=== PATIENT | male | born 1980 | race Caucasian/White ===

== ENCOUNTER 2019-08-30 07:57 | Inpatient (IN) ==
--- NOTE | 2019-08-30 08:35 | PROVIDER DOCUMENTATION ---
HPI-General Adult - General Chief Complaint: Cough Stated Complaint: SOB Time Seen by Provider: 08/30/19 08:20 Source: patient, family Allergies/Adverse Reactions: Patient Allergies Allergy/AdvReac Type Severity Reaction Status Date / Time amoxicillin Allergy RASH Verified 08/30/19 08:42 Sulfa (Sulfonamide Allergy RASH Verified 08/30/19 08:42 Antibiotics) Home Medications: Home Medication List Medication Instructions Recorded Confirmed Last Taken Type Alprazolam [Xanax] 0.5 mg PO PRN PRN 08/30/19 08/30/19 Unknown History Docusate Sodium 100 mg PO BID 08/30/19 08/30/19 Unknown History Hydrocodone/APAP 10 mg/325 mg 1 ea PO Q4H PRN PRN 08/30/19 08/30/19 Unknown History [[place]-10] Midodrine [Proamatine] 10 mg PO TID 08/30/19 08/30/19 Unknown History Sorbitol 1 gm MC DIRECTED 08/30/19 08/30/19 Unknown History - History of Present Illness -Gen Adult Nature of Presenting Problems: 20 year duration C-5 paraplegic with 12 hr hx of increased cough, white sputum now yellow, night sweats, ?fever. chronic suprapubic catheter and frequent UTIs, Alleric Sulfa and Amoxil. just moved from [facility] and no local PCP as of yet. Review of Systems - Adult - REVIEW OF SYSTEMS - ADULT Constitutional: reports: chills, fever, night sweats Eyes: reports: no symptoms reported Ears, Nose, Mouth & Throat: reports: no symptoms reported Cardiovascular: reports: no symptoms reported Respiratory: reports: see HPI Gastrointestinal: reports: no symptoms reported Genitourinary: reports: no symptoms reported Musculoskeletal: reports: no symptoms reported Integumentary: reports: no symptoms reported Neurological: reports: see HPI Psychiatric: reports: no symptoms reported Endocrine: reports: no symptoms reported Hematologic/Lymphatic: reports: no symptoms reported Allergic/Immunologic: reports: no symptoms reported All Other Systems: Reviewed and Negative Past History - Adult - PAST MEDICAL HISTORY-ADULT Review of Records: reports: Nursing Assessment Review, Medications Reviewed, Social history reviewed & non-contributory. Major Childhood Illnesses: reports: denies history Cardiovascular: reports: denies history Respiratory: reports: denies history Gastrointestinal: reports: denies history Obstetrical/Gynecological: reports: denies history Genitourinary: reports: denies history Musculoskeletal: reports: denies history Neurological: reports: denies history Endocrine/Immune: reports: denies history Other Conditions: reports: denies history Physical Exam-General - PHYSICAL EXAM-ADULT Initial Vital Signs Reviewed: Yes - CONSTITUTIONAL General Appearance: alert, cachetic, thin - EYES Eyes: PERRL/EOMI, pink conjunctivae. negative: meningismus - HEAD, EARS, NOSE, MOUTH & THROAT HENMT: normocephalic/atraumatic, moist mucous membranes - NECK Neck: full range of motion, other (trach in place ant neck) - RESPIRATORY Respiratory: chest non-tender, lungs clear, normal breath sounds, no respiratory distress, no accessory muscle use. negative: respiratory distress - CARDIOVASCULAR Cardiovascular: normal peripheral pulses, regular rate, rhythm, no edema, no murmur - GASTROINTESTINAL (ABDOMEN) Abdominal Exam: normal bowel sounds, soft, other (suprapubic catheter). 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 no motor below chest.) - PSYCHIATRIC Psych/Mental Status: normal mood/affect, normal thought content, normal thought process, oriented x 3. negative: anxious, paranoid, tearful Progress - PLAN OF CARE/RESULTS Progress/Plan/Lab Results: Vital Signs - 8 hr 08/30/19 08:06 Pulse Rate 90 Respiratory Rate 19 Blood Pressure 97/68 O2 Sat by Pulse Oximetry 97 Orders Category Date Time Status Cardiac Monitoring DIRECTED Care 08/30/19 08:28 Ordered Saline Loc NOW Care 08/30/19 08:28 Ordered CHEST-PORTABLE [RAD] Stat Exams 08/30/19 08:29 Ordered BLOOD CULTURE [BLDCUL] Stat Lab 08/30/19 08:28 Ordered CBC WITH ELECTRONIC DIFF [HEME] Stat Lab 08/30/19 08:28 Uncollected COMPREHENSIVE METABOLIC PANEL [CHEM] Stat Lab 08/30/19 08:[address] Stat Lab 08/30/19 08:28 Uncollected LACTATE, PLASMA [CHEM] Stat Lab 08/30/19 08:28 Uncollected SPUTUM CULTURE WITH GRAM STAIN [RM] Stat Lab 08/30/19 08:29 Uncollected URINALYSIS W/POSS RFLX CULT [URINALYSIS] Stat Lab 08/30/19 08:29 Uncollected URINE CULTURE [RM] Stat Lab 08/30/19 08:29 Uncollected Result Diagrams: 08/30/19 09:14 08/30/19 08:28 - XRAY 1 XRAY Study: Chest Impression: See EMR Report - CONSULTS/PCP/HOSPITALIST Notification #1 *Consult/PCP/Hospitalist*: DR CABALLERO Time Discussed: 10:33 Consult Disposition: Admit Departure - Departure Date of Disposition Decision: 08/30/19 Time of Disposition Decision: 10:44 DIAGNOSIS: Pneumonia, UTI (urinary tract infection), Quadriplegia, C5-C7 incomplete Disposition: ADMITTED INPATIENT 09 Certified Medical Emergency: Emergent Condition: Stable Referrals and Follow-Ups: None,PCP [Primary Care Provider] - - Critical Care Note This patient required my direct & personal management of CC.: No Attestation - Physician/ HAMIDA Attestation The physician spent face to face time with patient:: Yes Advanced Practice Provider documentation review:: Supervising physician onsite and consulted in the evaluation and care of this patient. The physician did have a face to face encounter with the patient.
[2019-08-30 09:06] LABS: URINE SOURCE CATH
[2019-08-30 09:17] LABS: BILIRUBIN URINE NEGATIVE (NEGATIVE); BLOOD URINE NEGATIVE (NEGATIVE); COLOR YELLOW; GLUCOSE URINE NEGATIVE (NEGATIVE); KETONE URINE NEGATIVE (NEGATIVE); LEUKOCYTES URINE LARGE (NEGATIVE); NITRITE URINE POSITIVE (NEGATIVE); PROTEIN URINE TRACE mg/dL (NEGATIVE); SP GRAVITY URINE 1.014; TURBIDITY URINE TURBID (CLEAR); UROBILINOGEN URINE NORMAL (NORMAL)
--- NOTE | 2019-08-30 09:21 | Diag Imaging Result Doc PS360 ---
EXAM: CHEST-PORTABLE HISTORY: cough TECHNIQUE: Single view of the chest was performed portably. COMPARISON: None. FINDINGS: There is a tracheostomy tube and surgical clips left apex. The heart size is within normal limits. There is increased opacity right apex associated with increased interstitial markings right upper lobe and superior hilar retraction. Correlate clinically and with prior studies. The pulmonary vasculature is not congested. No effusion, or pneumothorax is appreciated. Probable pulmonary emphysema. There is fusion of lower thoracic vertebral bodies. There are surgical clips left lateral chest wall. IMPRESSION: Increased interstitial markings right upper lobe and increased opacity right apex which may be chronic. Correlate clinically and with prior studies. Pulmonary emphysema. Electronically signed by Betty De Souza 08/30/2019 9:18 AM
[2019-08-30 09:36] LABS: BASO% 1.5 % (0.0-0.8); EOS# 0.27 X1000 (0.0-0.7); EOS% 3.9 % (0.0-10.0); HEMATOCRIT 34.8 % (42.0-52.0); HEMOGLOBIN 10.1 g/dL (14.0-18.0); LYMPH# 1.07 X1000 (1.2-3.4); LYMPH% 15.6 % (20.5-51.1); MCH 24.2 PG (27-31); MCV 83.3 FL (81-99); MONO# 0.56 X1000 (0.11-0.59); MONO% 8.2 % (1.7-9.3); MPV 10.5 FL (7.4-10.4); NEUT# 4.85 X1000 (1.4-6.5); NEUT% 70.8 % (42.2-75.2); PLT 350 X1000 (130-400); RBC 4.18 XMIL (4.7-6.1); RDW 19.1 % (11.5-14.5); WBC 6.85 X1000 (4.8-10.8)
[2019-08-30] MEDS ORDERED: LEVAQUIN 500 MG/D5W 500 MG/100 ML IVPB IV ONE (09:48)
[2019-08-30 09:49] LABS: UR EPITHELIAL CELLS <10 /HPF (<10); URINE BACTERIA 2+ /HPF; URINE RBC <10 /HPF (<10)
[2019-08-30 09:50] LABS: URINE CASTS NONE SEEN; URINE CRYSTALS NONE SEEN; URINE SMALL ROUND CELLS NONE SEEN; URINE YEAST PRESENT
[2019-08-30 09:58] LABS: INFLUENZA A NEGATIVE (NEGATIVE); INFLUENZA B NEGATIVE (NEGATIVE)
[2019-08-30 10:11] LABS: AGAP 11; ALBUMIN 3.7 g/dL (3.5-5.0); ALKALINE PHOSPHATASE 116 U/L (32-122); BUN 13 mg/dL (8-22); CALCIUM 8.7 mg/dL (8.8-10.2); CHLORIDE 98 mmol/L (98-107); COSMO 279; CREATININE < 0.2 mg/dL (0.7-1.2); GLUCOSE 151 mg/dL (70-104); GOT 27 U/L (10-34); GPT 18 U/L (10-44); POTASSIUM 4.2 mmol/L (3.5-5.1); SODIUM 138 mmol/L (136-145); TCO2 29 mmol/L (25-35); TOTAL PROTEIN 7.2 g/dL (6.3-8.3)
[2019-08-30] MEDS ORDERED: NORCO-10 PO ONE (11:12)
--- NOTE | 2019-08-30 14:14 | HISTORY AND PHYSICAL ---
PRIMARY CARE PHYSICIAN: None. CHIEF COMPLAINT: Cough of yellow sputum, night sweats, subjective fever over the past day that has progressively worsened. HISTORY OF PRESENTING ILLNESS: This is a 38-year-old, male with a history of quadriplegia, chronic suprapubic catheter with frequent UTIs, and feeding tube, who presents to [facility] ER with complaints of a productive cough of yellow sputum, night sweats, subjective fever over the past day that progressively worsened. States he gets frequent UTIs and pneumonia. He has recently moved from [place] to here in [place], so he does not have a primary care physician at this time. Workup showed white blood cell count to be within normal limits. Urinalysis with positive nitrites, large leukocytes, 2+ white blood cells. Influenza A and B were both negative. His chest x-ray showed increased interstitial marking in the right upper lobe, and increased opacity in the right apex, which may be chronic, but correlate clinically and with prior studies, which we do not have, and also has pulmonary emphysema, so he will be admitted for further evaluation and treatment. PAST MEDICAL HISTORY: Quadriplegia and hypotension. PAST SURGICAL HISTORY: Left BKA, an appendectomy, suprapubic catheter placement, tracheostomy, and a feeding tube. FAMILY HISTORY: Reviewed and noncontributory. SOCIAL HISTORY: Currently lives with family. Denies any tobacco, alcohol, or illicit drug use. ALLERGIES: Amoxicillin and sulfa. HOME MEDICATIONS: He takes Xanax 0.5 mg p.o. p.r.n., Colace 100 mg p.o. b.i.d., [place] 10 one p.o. every 4 hours p.r.n., midodrine 10 mg p.o. t.i.d., and sorbitol 1 gram as directed on Fridays for bowel training. IMAGING AND LABORATORY DATA: Laboratory data showed a white blood cell count of 6.85, hemoglobin 10.1, hematocrit 34.8, platelets 350,000. Sodium 138, potassium 4.2, chloride 98, CO2 of 29, BUN of 13, creatinine less than 0.2, glucose 151. Plasma lactate of 1.4. Urinalysis with positive nitrites, large leukocytes, 2+ bacteria. Influenza A and B were both negative. Chest x-ray showed increased interstitial markings in the right upper lobe, and increased opacity to the right apex, which may be chronic. Correlate clinically and with prior studies. Pulmonary emphysema. REVIEW OF SYSTEMS: He had a subjective fever, night sweats, a productive yellow sputum, cough. Denied any shortness of breath, chest pain, abdominal pain, constipation, diarrhea, burning or hurting with urination. PHYSICAL EXAMINATION: VITAL SIGNS: On arrival, he had a pulse of 90, respirations 19, blood pressure 97/68, saturating 97% on room air. GENERAL: This is a 38-year-old, male, lying in the bed, answers questions appropriately. HEENT: Normocephalic, atraumatic. Normal ENT inspection. Oropharynx and nares are clear. Eyes: Pupils are equal, round, reactive to light and accommodation. Extraocular movements are intact. NECK: He has a trach in place to his anterior neck. LUNGS: Clear to auscultation bilaterally with equal lung expansion and chest wall movement. HEART: Regular rate and rhythm. No murmurs, rubs, or gallops. ABDOMEN: Soft, nontender, nondistended. He is noted to have a feeding tube in place and a suprapubic catheter. Bowel sounds are present x4 quadrants. MUSCULOSKELETAL: He has a left AKA. He is quadriplegic. NEUROLOGICAL: He does note contractures to his hands bilaterally. He does have some shoulder biceps movement, but no motor below the chest. He is alert and oriented x3, and answers questions appropriately. ASSESSMENT: 1. Right lung pneumonia. 2. Urinary tract infection. 3. Quadriplegia. PLAN: He will be admitted to the medical unit, placed on telemetry, O2 per protocol via his trach, n.p.o. He receives Isosource 4 cans per his feeding tube daily mixed with 150 mL of water with each feeding, and then flushed with 150 mL of water after each feeding. Incentive spirometry. Will place him on an air mattress, SCD to his right lower extremity for DVT prophylaxis. Will place on Levaquin 500 mg IV every 24 hours, DuoNeb every 4 hours per his trach. Continue home medications as previously identified. Recheck a CBC and BMP in the a.m. Urine culture, sputum culture, and blood cultures x2 are pending. Further orders after seen by attending. Dictated by SHAYAN Quan for Kenji Daniel MD cc: SHAYAN Quan MD
[2019-08-30] MEDS: NORCO-10 PO PRN ×2 (15:02→20:22)
[2019-08-30] MEDS ORDERED: DUONEB (A & A) INH SCH (15:30)
[2019-08-30] MEDS ORDERED: XOPENEX NEB ONE (16:20)
[2019-08-30] MEDS: XOPENEX NEB INH SCH ×2 (16:23→21:49)
[2019-08-30] MEDS: PROAMATINE PO SCH ×2 (16:35→16:45)
[2019-08-30] MEDS: XANAX PO PRN (16:35)
[2019-08-30] MEDS ORDERED: ATROVENT NEB INH SCH (19:30)
[2019-08-30] MEDS: COLACE PO SCH (20:22)
[2019-08-31] MEDS: NORCO-10 PO PRN ×3 (01:06→09:51)
[2019-08-31] MEDS: XANAX PO PRN ×2 (04:04→12:21)
[2019-08-31] MEDS: ATROVENT NEB INH SCH ×4 (04:05→21:30)
[2019-08-31 06:45] LABS: BASO# 0.07 X1000 (0.0-0.2); BASO% 1.7 % (0.0-0.8); EOS# 0.29 X1000 (0.0-0.7); HEMATOCRIT 29.9 % (42.0-52.0); HEMOGLOBIN 8.7 g/dL (14.0-18.0); LYMPH# 1.62 X1000 (1.2-3.4); LYMPH% 39.2 % (20.5-51.1); MCHC 29.1 g/dL (33-37); MCV 82.6 FL (81-99); MONO# 0.33 X1000 (0.11-0.59); MPV 10.7 FL (7.4-10.4); NEUT# 1.82 X1000 (1.4-6.5); NEUT% 44.1 % (42.2-75.2); PLT 278 X1000 (130-400); RBC 3.62 XMIL (4.7-6.1); RDW 19.1 % (11.5-14.5); WBC 4.13 X1000 (4.8-10.8)
[2019-08-31 07:05] LABS: AGAP 10; BUN 10 mg/dL (8-22); CALCIUM 8.7 mg/dL (8.8-10.2); CHLORIDE 98 mmol/L (98-107); COSMO 272; CREATININE < 0.2 mg/dL (0.7-1.2); GLUCOSE 77 mg/dL (70-104); POTASSIUM 4.2 mmol/L (3.5-5.1); SODIUM 137 mmol/L (136-145); TCO2 29 mmol/L (25-35)
--- NOTE | 2019-08-31 07:14 | HISTORY AND PHYSICAL ---
ADDENDUM: Patient seen and examined by myself. Full note dictated and discussed with nurse practitioner. The patient is a 18-year-old C5 paraplegic with increased cough, congestion, increased sputum. We are going to admit him to the hospital, place him on antibiotics for pneumonia, and will follow. cc: Kenji Daniel MD
[2019-08-31] MEDS: XOPENEX NEB INH SCH ×3 (09:08→21:30)
[2019-08-31] MEDS: COLACE PO SCH ×2 (09:50→21:21)
[2019-08-31] MEDS: PROAMATINE PO SCH ×3 (09:50→17:01)
[2019-08-31] MEDS: LEVAQUIN 500 MG/D5W 500 MG/100 ML IVPB IV SCH (09:57)
[2019-08-31] MEDS: MORPHINE IV PRN ×3 (10:53→18:52)
[2019-08-31] MEDS ORDERED: XANAX PO SCH ×2 (21:00)
[2019-08-31] MEDS: XANAX PO SCH (21:21)
[2019-09-01] MEDS: MORPHINE IV PRN ×4 (00:35→14:16)
[2019-09-01] MEDS: ATROVENT NEB INH SCH ×4 (03:21→22:06)
[2019-09-01] MEDS: XOPENEX NEB INH SCH ×3 (09:00→22:05)
[2019-09-01] MEDS: COLACE PO SCH ×2 (09:06→20:38)
[2019-09-01] MEDS: PROAMATINE PO SCH ×3 (09:06→17:15)
[2019-09-01] MEDS: LEVAQUIN 500 MG/D5W 500 MG/100 ML IVPB IV SCH (09:06)
[2019-09-01] MEDS: LOVENOX SUBQ SCH (09:06)
[2019-09-01] MEDS ORDERED: NS 500 ML ONE (16:16)
[2019-09-01] MEDS: XANAX PO SCH (20:38)
[2019-09-01] MEDS: PERCOCET-5 PO PRN (20:39)
--- NOTE | 2019-09-01 22:21 | PROGRESS NOTE ---
DATE: 08/31/2019 SUBJECTIVE: Patient has no major complaints, except pain is persistent. OBJECTIVE: Vital signs: Blood pressure was 115/81, heart rate 101, respiratory rate 16, temperature 98.3 degrees, he was afebrile. Cardiovascular: Regular rate and rhythm. Pulmonary: Bilateral breath sounds diminished at the bases. Gastrointestinal: Soft, nontender, nondistended. Bowel sounds were positive. LABORATORY DATA: White count was 4, hemoglobin and hematocrit 8 and 29, platelets 278,000. PROBLEM LIST: 1. Complicated urinary tract infection with a suprapubic catheter. We will continue empiric antibiotics and follow. Currently on Levaquin. 2. Right upper lobe pneumonia. We will continue to monitor closely and follow. 3. Quadriplegia. We will continue his regular medications and follow. DISPOSITION: Pending clinical status, discharge when more stable. cc: Yong Ascencio MD
--- NOTE | 2019-09-01 22:33 | PROGRESS NOTE ---
DATE: 09/01/2019 SUBJECTIVE: He has no major complaints. OBJECTIVE: Blood pressure is 86/56, heart rate of 100, respiratory rate 18, temperature 98.4 degrees.Cardiovascular: Regular rate and rhythm. Pulmonary: Bilateral breath sounds. Clear to auscultation. GI: Soft, nontender, nondistended. Bowel sounds are positive. LABORATORY DATA: White count is 4, hemoglobin and hematocrit 8 and 29, platelets 278,000. Basic was normal. PROBLEM LIST: 1. Right upper lobe pneumonia. We will continue empiric antibiotics and follow. 2. Urinary tract infection. Gram-negative fabien. He is currently on Levaquin. This will be day 2. We are waiting on final measures for resistance patterns. 3. Chronic obstructive pulmonary disease. Seems to be doing okay. Stable currently. 4. Quadriplegia. Also stable. We will continue to monitor. Anticipate discharge in the next couple days pending his consult. 5. Disposition. 6. Hypotension. We will continue to treat, follow his blood pressure closely. I do think he has some autonomic dysfunction related to his quadriplegia and we may need to worry about possible complications there. He is on midodrine. We will treat his blood pressure intermittently as needed. cc: Yong Ascencio MD
[2019-09-02] MEDS: PERCOCET-5 PO PRN ×4 (00:31→18:35)
[2019-09-02] MEDS: ATROVENT NEB INH SCH ×5 (04:47→21:11)
[2019-09-02] MEDS: LOVENOX SUBQ SCH (06:24)
[2019-09-02 07:03] LABS: BASO# 0.07 X1000 (0.0-0.2); BASO% 1.8 % (0.0-0.8); EOS# 0.26 X1000 (0.0-0.7); EOS% 6.8 % (0.0-10.0); HEMATOCRIT 32.5 % (42.0-52.0); HEMOGLOBIN 9.5 g/dL (14.0-18.0); LYMPH# 1.35 X1000 (1.2-3.4); LYMPH% 35.2 % (20.5-51.1); MCH 24.1 PG (27-31); MCHC 29.2 g/dL (33-37); MCV 82.5 FL (81-99); MONO# 0.49 X1000 (0.11-0.59); MONO% 12.8 % (1.7-9.3); MPV 11.1 FL (7.4-10.4); NEUT# 1.66 X1000 (1.4-6.5); NEUT% 43.4 % (42.2-75.2); PLT 285 X1000 (130-400); RBC 3.94 XMIL (4.7-6.1); RDW 18.8 % (11.5-14.5); WBC 3.83 X1000 (4.8-10.8)
[2019-09-02 07:09] LABS: SODIUM 139 mmol/L (136-145)
[2019-09-02 07:10] LABS: AGAP 12; BUN 12 mg/dL (8-22); CALCIUM 9.1 mg/dL (8.8-10.2); CHLORIDE 100 mmol/L (98-107); COSMO 276; CREATININE 0.2 mg/dL (0.7-1.2); ESTIMATED GFR > 60; GLUCOSE 74 mg/dL (70-104); TCO2 28 mmol/L (25-35)
--- NOTE | 2019-09-02 07:48 | Diag Imaging Result Doc PS360 ---
EXAM: CHEST-PORTABLE - 09/02/2019 HISTORY: dyspnea TECHNIQUE: Portable chest COMPARISON: 08/30/2019 FINDINGS: Heart size is normal. There are COPD/emphysematous changes. There is scarring at the right apex. There is been apparent development of minimal ill-defined perihilar infiltrate on the right. There is no other consolidation, vascular congestion, pleural effusion, or pneumothorax identified. Tracheostomy tube remains in place. There are some degenerative changes noted at the bilateral shoulders. IMPRESSION: COPD/emphysematous changes. Minimal perihilar infiltrate on the right. Electronically signed by Elliot Henderson 09/02/2019 7:46 AM
[2019-09-02] MEDS: XOPENEX NEB INH SCH ×3 (08:27→21:11)
[2019-09-02] MEDS: LEVAQUIN 500 MG/D5W 500 MG/100 ML IVPB IV SCH (10:19)
[2019-09-02] MEDS: COLACE PO SCH ×2 (10:20→21:28)
[2019-09-02] MEDS: PROAMATINE PO SCH ×3 (10:20→17:52)
[2019-09-02] MEDS: XANAX PO SCH (21:28)
[2019-09-03] MEDS: PERCOCET-5 PO PRN ×4 (00:36→21:03)
--- NOTE | 2019-09-03 05:49 | PROGRESS NOTE ---
DATE: 09/02/2019 SUBJECTIVE: Patient has no new complaints. States he is still hurting all over. Denies any fevers or chills. PHYSICAL EXAMINATION: Vital Signs: Temperature 97.9 degrees, pulse 69, respiratory rate 18, BP 143/69. General: Patient is awake, alert. He is sitting in his wheelchair. He is in no distress. HEENT: Normocephalic. Neck: Supple. Cardiovascular: Regular rate. Chest: Clear, nonlabored. Neurologic: No focal changes. He has decreased movement of all 4 extremities due to chronic quadriplegia. ASSESSMENT: 1. Right upper lobe pneumonia. 2. Urinary tract infection, currently growing gram-negative rods. 3. Chronic obstructive pulmonary disease. 4. Quadriplegia. 5. Chronic pain. 6. Hypotension, resolved. PLAN: We are going to continue patient in the hospital. Continue antibiotics. Follow his culture. Patient is incapable of caring for himself at home. We expect that he will need further inpatient treatment with rehab. cc: Kenji Daniel MD
[2019-09-03] MEDS: LOVENOX SUBQ SCH (06:32)
[2019-09-03] MEDS ORDERED: SORBITOL PO SCH (08:00)
[2019-09-03] MEDS: MAXIPIME 1 GM in NS 50 ML IV SCH ×2 (09:30→21:06)
[2019-09-03] MEDS: PROAMATINE PO SCH ×3 (09:30→17:02)
[2019-09-03] MEDS: ATROVENT NEB INH SCH ×3 (10:44→22:25)
[2019-09-03] MEDS: XOPENEX NEB INH SCH ×3 (10:45→22:25)
[2019-09-03] MEDS ORDERED: BENADRYL IV PRN (10:50)
[2019-09-03] MEDS: COLACE PO SCH ×2 (10:56→21:03)
[2019-09-03] MEDS: BENADRYL IV PRN ×3 (10:57→21:05)
[2019-09-03] MEDS: XANAX PO SCH (21:04)
--- NOTE | 2019-09-03 23:20 | PROGRESS NOTE ---
DATE: 09/03/2019 SUBJECTIVE: The patient has no new complaints. PHYSICAL EXAMINATION: Vital Signs: Reviewed. Temperature 97.7 degrees, pulse is 101, respiratory rate 18, BP 95/69. General: The patient is in no current distress. He is sitting in his wheelchair, watching his iPad. HEENT: Normocephalic. Neck: Supple. Cardiovascular: Regular rate. Chest: Clear with occasional rhonchi. No wheezing, no crackles. Extremities: He has no edema. Neurologic: He has no focal changes. ASSESSMENT: 1. Right upper lobe pneumonia, improved. 2. Urinary tract infection, stable. 3. Quadriplegia. 4. Chronic obstructive pulmonary disease. 5. Hypotension, stable. PLAN: The patient currently is improving medically. Discharge is still problematic due to social situation. We are going to continue him in the hospital until we can find a safe discharge plan. cc: Kenji Daniel MD
[2019-09-04] MEDS: BENADRYL IV PRN ×5 (02:08→22:49)
[2019-09-04] MEDS: COLACE PO SCH ×2 (09:41→22:49)
[2019-09-04] MEDS: PERCOCET-5 PO PRN ×2 (09:41→15:52)
[2019-09-04] MEDS: MAXIPIME 1 GM in NS 50 ML IV SCH ×2 (09:42→22:50)
[2019-09-04] MEDS: LOVENOX SUBQ SCH (09:42)
[2019-09-04] MEDS: PROAMATINE PO SCH ×3 (09:49→17:56)
[2019-09-04] MEDS: XOPENEX NEB INH SCH ×3 (11:12→18:13)
[2019-09-04] MEDS: ATROVENT NEB INH SCH ×2 (11:12→16:05)
[2019-09-04] MEDS: XANAX PO SCH (22:49)
--- NOTE | 2019-09-05 03:49 | PROGRESS NOTE ---
DATE: 09/04/2019 SUBJECTIVE: Patient has no major complaints. OBJECTIVE: Vital signs: Blood pressure is 109/66, heart rate 87, respiratory 18, temperature 97.9 degrees. Cardiovascular: Regular rate and rhythm. Pulmonary: Bilateral breath sounds, clear to auscultation. Gastrointestinal: Soft, nontender, nondistended. Bowel sounds are positive. LABORATORY DATA: White count is 3.8, hemoglobin and hematocrit 9 and 32, platelets 285,000. PROBLEM LIST: Right upper lobe pneumonia. He is still on antibiotics. He is on cefepime, he has been on that since 09/03, which is just yesterday, and then he had Pseudomonas in his urine which was sensitive to cefepime, but that was on 08/30, so he will at least need 2 more days for that. I am going to say this is day 5 of antibiotics. We will continue to monitor. cc: Yong Ascencio MD
[2019-09-05] MEDS: PERCOCET-5 PO PRN ×2 (05:46→12:20)
[2019-09-05] MEDS: LOVENOX SUBQ SCH (05:47)
[2019-09-05 06:16] LABS: BASO# 0.09 X1000 (0.0-0.2); BASO% 2.4 % (0.0-0.8); EOS# 0.33 X1000 (0.0-0.7); EOS% 8.9 % (0.0-10.0); HEMATOCRIT 36.5 % (42.0-52.0); HEMOGLOBIN 10.8 g/dL (14.0-18.0); LYMPH# 1.28 X1000 (1.2-3.4); LYMPH% 34.5 % (20.5-51.1); MCH 25.1 PG (27-31); MCHC 29.6 g/dL (33-37); MCV 84.7 FL (81-99); MONO# 0.44 X1000 (0.11-0.59); MONO% 11.9 % (1.7-9.3); MPV 11.1 FL (7.4-10.4); NEUT# 1.57 X1000 (1.4-6.5); NEUT% 42.3 % (42.2-75.2); PLT 260 X1000 (130-400); RBC 4.31 XMIL (4.7-6.1); RDW 19.2 % (11.5-14.5); WBC 3.71 X1000 (4.8-10.8)
[2019-09-05 06:48] LABS: AGAP 16; BUN 11 mg/dL (8-22); CALCIUM 9.1 mg/dL (8.8-10.2); CHLORIDE 103 mmol/L (98-107); COSMO 274; CREATININE 0.2 mg/dL (0.7-1.2); ESTIMATED GFR > 60; GLUCOSE 74 mg/dL (70-104); POTASSIUM 4.4 mmol/L (3.5-5.1); SODIUM 138 mmol/L (136-145); TCO2 19 mmol/L (25-35)
[2019-09-05] MEDS: MAXIPIME 1 GM in NS 50 ML IV SCH ×2 (09:07→21:52)
[2019-09-05] MEDS: PROAMATINE PO SCH ×3 (09:07→17:51)
[2019-09-05] MEDS: BENADRYL IV PRN ×4 (09:07→23:02)
[2019-09-05] MEDS: COLACE PO SCH ×2 (09:55→21:52)
[2019-09-05] MEDS: XOPENEX NEB INH SCH ×4 (11:40→22:31)
[2019-09-05] MEDS: ATROVENT NEB INH SCH ×4 (11:40→22:30)
--- NOTE | 2019-09-05 14:11 | PROGRESS NOTE ---
DATE: 09/05/2019 SUBJECTIVE: Patient has no major complaints. OBJECTIVE: Blood pressure is 116/73, heart rate of 81, respiratory 18, temperature 98.1 degrees, 97% on room air.Cardiovascular: Regular rate and rhythm. Pulmonary: Bilateral breath sounds clear to auscultation. GI: Soft, nontender, nondistended. Bowel sounds are positive. LABORATORY DATA: White count 3, hemoglobin and hematocrit 10 and 36, platelets 260,000. Basic was normal. PROBLEM LIST: 1. Right upper lobe pneumonia. He is on cefepime. He also has a Pseudomonas urinary tract infection but will continue cefepime, Pseudomonas urinary tract infection I think is sensitive to only IV options and it was started on the 2nd but was not sensitive to levaquin; so he was placed on cefipime on the 6th but we may have to consider PICC in him and home IV antibiotics but we will continue to monitor. I think it is day 6 but according to when this was started it was only day 3. 2. Quadriplegia. We will continue his regular medications, guess he had been on Levaquin on the 2nd and he was changed to cefepime on the 6th when sensitivities came back, maybe that is how that worked so he has only been on this 3 days. He will probably need a PICC line so will work on that tomorrow. DISPOSITION: I am not quite sure what is going on with this. He seems to say he can go home with his sister who is an RN but there is some sort of plan for long-term care but he says this will not go through until the beginning of September so he says he can go home so we are going to try to figure out what is going on here but I am not sure if there may be some sort of social situation here. cc: Yong Ascencio MD MTDD
[2019-09-05] MEDS: XANAX PO SCH (21:52)
[2019-09-06 06:06] LABS: AGAP 11; BUN 11 mg/dL (8-22); CHLORIDE 101 mmol/L (98-107); COSMO 274; CREATININE 0.2 mg/dL (0.7-1.2); ESTIMATED GFR > 60; GLUCOSE 81 mg/dL (70-104); POTASSIUM 4.1 mmol/L (3.5-5.1); SODIUM 138 mmol/L (136-145); TCO2 26 mmol/L (25-35)
[2019-09-06] MEDS: LOVENOX SUBQ SCH (06:08)
[2019-09-06] MEDS: PERCOCET-5 PO PRN ×3 (06:19→21:09)
[2019-09-06 06:29] LABS: BASO# 0.07 X1000 (0.0-0.2); BASO% 1.6 % (0.0-0.8); EOS# 0.33 X1000 (0.0-0.7); EOS% 7.6 % (0.0-10.0); HEMATOCRIT 34.6 % (42.0-52.0); HEMOGLOBIN 10.1 g/dL (14.0-18.0); IMM GRAN# 0.01 X1000 (0.0-0.04); IMM GRAN% 0.2 % (0.0-0.5); LYMPH# 1.47 X1000 (1.2-3.4); LYMPH% 33.8 % (20.5-51.1); MCH 24.2 PG (27-31); MCHC 29.2 g/dL (33-37); MCV 82.8 FL (81-99); MONO# 0.54 X1000 (0.11-0.59); MONO% 12.4 % (1.7-9.3); MPV 11.5 FL (7.4-10.4); NEUT# 1.93 X1000 (1.4-6.5); NEUT% 44.4 % (42.2-75.2); PLT 252 X1000 (130-400); RBC 4.18 XMIL (4.7-6.1); RDW 18.7 % (11.5-14.5); WBC 4.35 X1000 (4.8-10.8)
[2019-09-06 08:06] LABS: INR 1.01; PROTIME 13.8 Seconds (11.0-16.0)
[2019-09-06] MEDS ORDERED: NS 250 ML ONE (08:36)
[2019-09-06] MEDS: ATROVENT NEB INH SCH ×2 (09:17→15:22)
[2019-09-06] MEDS: XOPENEX NEB INH SCH ×2 (09:17→15:22)
[2019-09-06] MEDS: COLACE PO SCH ×2 (09:35→21:10)
[2019-09-06] MEDS: BENADRYL IV PRN ×3 (09:35→22:24)
[2019-09-06] MEDS: PROAMATINE PO SCH ×3 (09:35→17:13)
[2019-09-06] MEDS: MAXIPIME 1 GM in NS 50 ML IV SCH ×3 (09:35→21:10)
--- NOTE | 2019-09-06 15:53 | PROGRESS NOTE ---
DATE: 09/06/2019 SUBJECTIVE: Patient has no major complaints. OBJECTIVE: Vital signs: Blood pressure is 102/72, heart rate 65, respiratory 16, temperature 97.7 degrees. Cardiovascular: Regular rate and rhythm. Pulmonary: Bilateral breath sounds. Clear to auscultation. GI: Soft, nontender, nondistended. Bowel sounds are positive. LABORATORY DATA: White count 4, hemoglobin and hematocrit 10 and 34, platelets 252,000. PROBLEM LIST: 1. Right upper lobe pneumonia. He is on cefepime. We will continue antibiotics and follow closely. 2. Pseudomonas urinary tract infection with a suprapubic catheter. He was started on antibiotics on the 6th so this will be day 4. I will probably treat for another 10 days. 3. Quadriplegia. He is on his regular medications. We will continue to follow. DISPOSITION: Plan is to go home now after much ado. His sister will take him home and we will go ahead and plan for that once the home IV antibiotic is set up. cc: Yong Ascencio MD
[2019-09-06] MEDS: XANAX PO SCH (21:08)
[2019-09-07] MEDS: XOPENEX NEB INH SCH ×2 (00:11→10:42)
[2019-09-07] MEDS: ATROVENT NEB INH SCH ×2 (00:11→10:41)
[2019-09-07] MEDS: LOVENOX SUBQ SCH (05:52)
[2019-09-07] MEDS: BENADRYL IV PRN ×2 (06:00→10:07)
[2019-09-07] MEDS: PERCOCET-5 PO PRN ×2 (06:01→12:09)
[2019-09-07 07:04] LABS: AGAP 12; BUN 11 mg/dL (8-22); CALCIUM 9.2 mg/dL (8.8-10.2); CHLORIDE 100 mmol/L (98-107); COSMO 276; CREATININE 0.2 mg/dL (0.7-1.2); ESTIMATED GFR > 60; GLUCOSE 114 mg/dL (70-104); POTASSIUM 3.9 mmol/L (3.5-5.1); SODIUM 138 mmol/L (136-145); TCO2 26 mmol/L (25-35)
[2019-09-07 07:07] LABS: HEMATOCRIT 35.6 % (42.0-52.0); HEMOGLOBIN 10.4 g/dL (14.0-18.0); MCH 24.3 PG (27-31); MCHC 29.2 g/dL (33-37); MCV 83.2 FL (81-99); MPV 11.6 FL (7.4-10.4); RBC 4.28 XMIL (4.7-6.1); RDW 18.7 % (11.5-14.5); WBC 3.79 X1000 (4.8-10.8)
[2019-09-07] MEDS: MAXIPIME 1 GM in NS 50 ML IV SCH (08:23)
[2019-09-07] MEDS: PROAMATINE PO SCH ×2 (08:23→12:09)
[2019-09-07] MEDS: COLACE PO SCH (08:23)
[2019-09-07 11:22] VITALS: BP 114/78
--- NOTE | 2019-09-08 03:21 | PROGRESS NOTE ---
DATE: 09/07/2019 SUBJECTIVE: The patient with no complaints. States he feels fine. OBJECTIVE: Temperature 98 degrees, pulse 60s, BP 102/73 to 164/105 when he gets anxious.HEENT: Normocephalic. Neck: Supple. Cardiovascular: Regular rate. Chest: Clear and nonlabored. Abdomen: Soft. Extremities: No edema. ASSESSMENT: 1. Right upper lobe pneumonia. 2. Pseudomonas urinary tract infection, he is on day 5 of 10 days. 3. Quadriplegia. PLAN: The patient has decided to go home instead of attempting to await rehabilitation. We will allow him to discharge as soon as or if home IV antibiotics can be obtained. cc: Kenji Daniel MD
--- NOTE | 2019-09-10 00:04 | DISCHARGE SUMMARY ---
ADMISSION DATE: 08/30/2019 DISCHARGE DATE: 09/07/2019 DISCHARGE DIAGNOSES: 1. Right lower lobe pneumonia, resolved. 2. Urinary tract infection, Pseudomonas, still problematic. 3. Quadriplegia. 4. Adult ldbmksf-[id number]-lkezhe. 5. Left above-knee amputation. CONSULTATIONS: None. PROCEDURES: None. BRIEF HOSPITAL COURSE: The patient is a 38-year-old male who was actually brought to [place] by his sister and then was noted to be sick. He was brought to the ER, diagnosed with a right upper lobe pneumonia, as well as urinary tract infection. He was admitted to the hospital, placed on antibiotics. His urine grew Pseudomonas. His antibiotics were changed to include treatment for Pseudomonas. His home medications of sorbitol, Midodrine, [place], Colace, amitriptyline and Xanax were continued while he was in the hospital. Thankfully, he had an uneventful hospital course, prolonged secondary to social situation. Unfortunately, his insurance has not started yet from [place] where he had [facility]. The original plan by his sister was for him to stay at home with her. Then she declined to bring him back home and requested rehab. After a few days in the hospital waiting for a rehab bed, she decided to take him back home. DISPOSITION: On discharge, the patient is awake, alert. He is in no distress. He is still on cefepime. He will continue this for 7 more days at home, 1 g twice daily. He will continue his other home medications without changes. Prescriptions were written for those medicines to allow him time to get into a new primary care office. He is instructed to follow up with a primary care in the next 1 to 2 weeks, sooner should symptoms worsen or return. Greater than 30 minutes was spent in total care. cc: Kenji Daniel MD MTDD
== END 2019-09-07 14:47 | disposition home health service (06) | DRG 193 ==
LOC: P.ED 07:57 → P.MEDSURG 07:58 → SUATTDRO 07:58
PROVIDERS: ATTEND Family Medicine